=== PATIENT | female | born 1935 | race Caucasian/White ===

== ENCOUNTER 2018-08-29 14:14 | Inpatient (IN) | payer MEDICARE, OTHER ==
[~2018-08-29] VITALS: Ht 162.6 cm; Wt 105.6 kg
[2018-08-29] MEDS ORDERED: SODIUM CHLORIDE 0.9% 1,000 ML IV ONE (14:40)
[2018-08-29 15:14] LABS: Basophils # (auto) 0.1 uL; Eosinophils # (auto) 0.3 uL; Neutrophils # (auto) 6.8 uL
[2018-08-29 15:16] LABS: Basophils % (auto) 0.7 % (0.0-2.0); Eosinophils % (auto) 2.7 % (0.0-7.0); Hematocrit 37.1 % (36.0-46.0); Hemoglobin 12.1 g/dL (12.2-16.2); Lymphocytes % (auto) 20.4 % (10.0-50.0); Mean Corpuscular Hemoglobin 18.7 pg (28.0-32.0); Mean Corpuscular Hgb Conc. 32.5 g/dL (32.0-36.0); Mean Corpuscular Volume 57.5 fL (80.0-100.0); Monocytes # (auto) 0.8 uL; Monocytes % (auto) 8.4 % (0.0-12.0); Neutrophils % (auto) 67.8 % (37.0-80.0); Nucleated Red Blood Cells % 0.1 %; Platelet Count (auto) 368 10^3/uL (140-450); Red Blood Cells 6.45 10^6/uL (4.0-5.20); Red Cell Distribution Width 16.9 % (11.8-14.3)
[2018-08-29 15:27] LABS: INR 0.98 (0.9-1.15); Partial Thromboplastin Time 32.6 sec (23.78-33.04); Prothrombin Time 10.5 sec (9.27-12.13)
[2018-08-29 15:33] LABS: Alanine Aminotransferase 16 U/L (13-56); Albumin 3.4 g/dL (3.4-5.0); Anion Gap 9 (5-15); Blood Urea Nitrogen 25 mg/dL (7-18); Calcium 8.8 mg/dL (8.5-10.1); Carbon Dioxide 27 mmol/L (21-32); Chloride 103 mmol/L (98-107); Glucose 159 mg/dL (74-106); Potassium 3.5 mmol/L (3.5-5.1); Sodium 139 mmol/L (136-145)
[2018-08-29 15:38] LABS: Alkaline Phosphatase 67 U/L (45-117); Aspartate Aminotransferase 15 U/L (15-37); BUN/Creatinine Ratio 32.9; Bilirubin, Total 0.7 mg/dL (0.2-1.0); GFR African American 94 mL/min; GFR Non-African American 77 mL/min; Total Protein 7.1 g/dL (6.4-8.2)
[2018-08-29 16:21] LABS: Urine Bacteria FEW /hpf (None Seen); Urine Blood Negative /uL (Negative); Urine Mucus FEW (None Seen); Urine Specific Gravity 1.024 (1.001-1.035); Urine WBC 62 /hpf (0 - 5)
[2018-08-29] MEDS ORDERED: DEXTROSE (50%) 50ML SYRG IV PRN (18:30)
[2018-08-29] MEDS ORDERED: clonazePAM 0.5 MG TAB PO PRN (18:45)
[2018-08-29] MEDS ORDERED: DOCUSATE SOD 100 MG CAP PO PRN (18:45)
[2018-08-29] MEDS ORDERED: NITROGLYCERIN 0.4 MG SL TAB SL PRN (18:45)
[2018-08-29] MEDS ORDERED: ONDANSETRON HCL 4 MG/2 ML VIAL IV PRN (18:45)
[2018-08-29] MEDS ORDERED: HYDROmorphone HCL 2 MG/ML VL IV PRN (19:00)
[2018-08-29] MEDS ORDERED: cefTRIAXone 1GM/50ML D5W 50 ML IV ONE (19:00)
[2018-08-29] MEDS: InsuLIN REG 1unit/0.01ml Soln (100units/ml) SC SCH (22:00)
[2018-08-29] MEDS: ACCU-CHEK COMFORT CURVE STRIP VI SCH (22:00)
[2018-08-29] MEDS: DORZOLAMIDE HCL 2% OPTH(EYE) SOL 10ML EACHEYE SCH (22:00)
[2018-08-29] MEDS: LATANOPROST 0.005 % OPTH(EYE) SOL 2.5ML EACHEYE SCH (22:00)
[2018-08-29] MEDS: prednisoLONE ACETATE 1% OPTH SUSP 5ML LEFTEYE SCH (22:00)
[2018-08-29] MEDS ORDERED: IPRATROPIUM BROM 0.5 MG/2.5ML INH SOL NEB SCH (22:00)
[2018-08-29 23:07] VITALS: BP 123/59
[2018-08-30] VITALS (7 sets, daily range): BP systolic 115–138; BP diastolic 58–77
[2018-08-30] MEDS: SODIUM CHLOR 0.9% PF (SALINE LOCK) 10ML VIAL/SYR IV SCH ×4 (00:45→21:18)
[2018-08-30] MEDS: GABAPENTIN 100 MG CAP PO SCH ×3 (00:46→21:23)
[2018-08-30] MEDS: POTASSIUM CHL 20 Meq TABLET PO SCH ×3 (00:46→21:23)
[2018-08-30] MEDS: VENLAFAXINE HCL 37.5mg XR cap PO SCH ×4 (00:46→21:23)
[2018-08-30] MEDS: amLODIPine BESYLATE 5 MG TAB PO SCH ×3 (00:47→21:24)
[2018-08-30] MEDS: PANTOPRAZOLE 40 MG TAB PO SCH ×3 (00:47→21:24)
[2018-08-30] MEDS: ASCORBIC ACID 500 MG TAB PO SCH ×3 (00:48→21:25)
[2018-08-30] MEDS: MONTELUKAST SODIUM 10 MG TAB PO SCH ×2 (00:48→21:24)
[2018-08-30] MEDS: LISINOPRIL 10 MG TAB PO SCH ×3 (00:48→21:26)
[2018-08-30] MEDS: INSULIN LANTUS (GLARGINE) 1 /0.01ml (100units/ml) SC SCH ×3 (00:49→21:26)
[2018-08-30] MEDS ORDERED: INSLANTI SC ×2 (02:11→02:12)
[2018-08-30] MEDS ORDERED: LATA0.0020 EACHEYE (02:12)
[2018-08-30] MEDS ORDERED: FOLI1TAB6 PO (02:12)
[2018-08-30] MEDS ORDERED: LISI10TA6 PO (02:12)
[2018-08-30] MEDS ORDERED: VENL150C2 PO (02:12)
[2018-08-30] MEDS ORDERED: ASPI81TA27 PO (02:12)
[2018-08-30] MEDS ORDERED: OMEP10CA58 PO (02:12)
[2018-08-30] MEDS ORDERED: LEVA1NEB5 IN (02:12)
[2018-08-30] MEDS ORDERED: DOCU-80 PO (02:12)
[2018-08-30] MEDS ORDERED: LEVO137T3 PO (02:12)
[2018-08-30] MEDS ORDERED: GABA100C9 PO (02:12)
[2018-08-30] MEDS ORDERED: AMLO5TAB13 PO (02:12)
[2018-08-30] MEDS ORDERED: MONT10TA34 PO (02:12)
[2018-08-30] MEDS ORDERED: CLON1TAB4 PO (02:12)
[2018-08-30] MEDS ORDERED: POTA20TA53 PO (02:12)
[2018-08-30] MEDS ORDERED: INSU100I4 SC (02:12)
[2018-08-30] MEDS ORDERED: DORZ2SOL18 EACHEYE (02:12)
[2018-08-30] MEDS ORDERED: FLUT100I IN (02:12)
[2018-08-30 06:04] LABS: Basophils # (auto) 0.1 uL; Eosinophils # (auto) 0.3 uL; Monocytes # (auto) 0.9 uL
[2018-08-30 06:06] LABS: Basophils % (auto) 0.6 % (0.0-2.0); Eosinophils % (auto) 3.5 % (0.0-7.0); Hematocrit 35.9 % (36.0-46.0); Hemoglobin 11.7 g/dL (12.2-16.2); Lymphocytes # (auto) 1.9 uL; Lymphocytes % (auto) 19.8 % (10.0-50.0); Mean Corpuscular Hemoglobin 18.5 pg (28.0-32.0); Mean Corpuscular Hgb Conc. 32.6 g/dL (32.0-36.0); Mean Corpuscular Volume 56.8 fL (80.0-100.0); Monocytes % (auto) 9.7 % (0.0-12.0); Neutrophils # (auto) 6.3 uL; Neutrophils % (auto) 66.4 % (37.0-80.0); Nucleated Red Blood Cells % 0.2 %; Platelet Count (auto) 339 10^3/uL (140-450); Red Blood Cells 6.32 10^6/uL (4.0-5.20); Red Cell Distribution Width 16.5 % (11.8-14.3); White Blood Cell 9.4 10^3/uL (4.4-10.8)
[2018-08-30 06:25] LABS: Calcium 8.1 mg/dL (8.5-10.1); Potassium 3.3 mmol/L (3.5-5.1)
[2018-08-30 06:27] LABS: BUN/Creatinine Ratio 37.5
[2018-08-30 06:30] LABS: Bilirubin, Total 0.6 mg/dL (0.2-1.0); Total Protein 6.2 g/dL (6.4-8.2)
[2018-08-30] MEDS: InsuLIN REG 1unit/0.01ml Soln (100units/ml) SC SCH ×4 (07:00→21:26)
[2018-08-30] MEDS: LEVOTHYROXINE SODIUM 25 MCG TAB PO SCH (07:02)
[2018-08-30] MEDS: LEVOTHYROXINE SODIUM 112 MCG TAB PO SCH (07:02)
[2018-08-30] MEDS: ACCU-CHEK COMFORT CURVE STRIP VI SCH ×4 (07:03→21:26)
[2018-08-30] MEDS: cefTRIAXone 1GM/50ML D5W 50 ML IV SCH (09:32)
[2018-08-30] MEDS: DORZOLAMIDE HCL 2% OPTH(EYE) SOL 10ML EACHEYE SCH ×2 (09:33→21:53)
[2018-08-30] MEDS: MULTIPLE VITAMIN TAB PO SCH (09:35)
[2018-08-30] MEDS: ZINC SULFATE 220mg CAP or TAB PO SCH (09:35)
[2018-08-30] MEDS: FOLIC ACID 1 MG TAB PO SCH (09:37)
[2018-08-30] MEDS: FLUTICASONE FUROATE IN SCH (09:43)
[2018-08-30] MEDS: VILANTEROL IN SCH (09:43)
[2018-08-30] MEDS: IPRATROPIUM BROM 0.5 MG/2.5ML INH SOL NEB SCH ×2 (12:32→18:39)
[2018-08-30] MEDS: LATANOPROST 0.005 % OPTH(EYE) SOL 2.5ML EACHEYE SCH (21:18)
[2018-08-30] MEDS: prednisoLONE ACETATE 1% OPTH SUSP 5ML LEFTEYE SCH (21:18)
[2018-08-31 05:06] VITALS: BP 110/70
[2018-08-31] MEDS: SODIUM CHLOR 0.9% PF (SALINE LOCK) 10ML VIAL/SYR IV SCH ×3 (05:58→21:29)
[2018-08-31] MEDS: VENLAFAXINE HCL 37.5mg XR cap PO SCH ×3 (05:58→21:26)
[2018-08-31] MEDS: LEVOTHYROXINE SODIUM 25 MCG TAB PO SCH (05:59)
[2018-08-31] MEDS: ACCU-CHEK COMFORT CURVE STRIP VI SCH ×4 (05:59→22:00)
[2018-08-31] MEDS: InsuLIN REG 1unit/0.01ml Soln (100units/ml) SC SCH ×4 (05:59→22:00)
[2018-08-31] MEDS: INSULIN LANTUS (GLARGINE) 1 /0.01ml (100units/ml) SC SCH ×2 (05:59→22:00)
[2018-08-31] MEDS: LEVOTHYROXINE SODIUM 112 MCG TAB PO SCH (05:59)
[2018-08-31] MEDS: IPRATROPIUM BROM 0.5 MG/2.5ML INH SOL NEB SCH ×4 (06:33→19:45)
[2018-08-31 08:28] VITALS: BP 134/69
[2018-08-31] MEDS: cefTRIAXone 1GM/50ML D5W 50 ML IV SCH (09:49)
[2018-08-31] MEDS: DORZOLAMIDE HCL 2% OPTH(EYE) SOL 10ML EACHEYE SCH ×2 (09:50→21:25)
[2018-08-31] MEDS: ASCORBIC ACID 500 MG TAB PO SCH ×2 (09:50→21:26)
[2018-08-31] MEDS: ZINC SULFATE 220mg CAP or TAB PO SCH (09:50)
[2018-08-31] MEDS: MULTIPLE VITAMIN TAB PO SCH (09:50)
[2018-08-31] MEDS: GABAPENTIN 100 MG CAP PO SCH ×2 (09:50→21:26)
[2018-08-31] MEDS: amLODIPine BESYLATE 5 MG TAB PO SCH ×2 (09:51→21:27)
[2018-08-31] MEDS: FOLIC ACID 1 MG TAB PO SCH (09:53)
[2018-08-31] MEDS: POTASSIUM CHL 20 Meq TABLET PO SCH ×2 (09:53→21:28)
[2018-08-31] MEDS: VILANTEROL IN SCH (09:54)
[2018-08-31] MEDS: LISINOPRIL 10 MG TAB PO SCH ×2 (09:54→21:27)
[2018-08-31] MEDS: PANTOPRAZOLE 40 MG TAB PO SCH ×2 (09:54→21:26)
[2018-08-31] MEDS: FLUTICASONE FUROATE IN SCH (09:54)
[2018-08-31 12:00] VITALS: BP 128/61
[2018-08-31 16:45] VITALS: BP 127/60
[2018-08-31 20:00] VITALS: BP 144/71
[2018-08-31] MEDS: LATANOPROST 0.005 % OPTH(EYE) SOL 2.5ML EACHEYE SCH (21:26)
[2018-08-31] MEDS: MONTELUKAST SODIUM 10 MG TAB PO SCH (21:27)
[2018-08-31 22:00] VITALS: BP 144/71
[2018-08-31] MEDS: prednisoLONE ACETATE 1% OPTH SUSP 5ML LEFTEYE SCH (22:00)
[2018-09-01] MEDS: IPRATROPIUM BROM 0.5 MG/2.5ML INH SOL NEB SCH ×4 (00:16→18:00)
[2018-09-01 05:00] VITALS: BP 134/68
[2018-09-01] MEDS: SODIUM CHLOR 0.9% PF (SALINE LOCK) 10ML VIAL/SYR IV SCH ×3 (05:04→22:17)
[2018-09-01] MEDS: VENLAFAXINE HCL 37.5mg XR cap PO SCH ×3 (05:44→22:19)
[2018-09-01] MEDS: LEVOTHYROXINE SODIUM 112 MCG TAB PO SCH (05:44)
[2018-09-01] MEDS: LEVOTHYROXINE SODIUM 25 MCG TAB PO SCH (05:44)
[2018-09-01] MEDS: ACCU-CHEK COMFORT CURVE STRIP VI SCH ×4 (05:45→22:22)
[2018-09-01] MEDS: InsuLIN REG 1unit/0.01ml Soln (100units/ml) SC SCH ×4 (06:24→22:00)
[2018-09-01] MEDS: INSULIN LANTUS (GLARGINE) 1 /0.01ml (100units/ml) SC SCH ×2 (06:24→22:00)
[2018-09-01 08:00] VITALS: BP 131/68
[2018-09-01 09:00] VITALS: BP 131/68
[2018-09-01] MEDS: cefTRIAXone 1GM/50ML D5W 50 ML IV SCH (09:40)
[2018-09-01] MEDS: POTASSIUM CHL 20 Meq TABLET PO SCH ×2 (10:00→22:20)
[2018-09-01] MEDS: FOLIC ACID 1 MG TAB PO SCH (10:00)
[2018-09-01] MEDS: ZINC SULFATE 220mg CAP or TAB PO SCH (10:00)
[2018-09-01] MEDS: MULTIPLE VITAMIN TAB PO SCH (10:00)
[2018-09-01] MEDS: PANTOPRAZOLE 40 MG TAB PO SCH ×2 (10:00→22:21)
[2018-09-01] MEDS: GABAPENTIN 100 MG CAP PO SCH ×2 (10:00→22:20)
[2018-09-01] MEDS: amLODIPine BESYLATE 5 MG TAB PO SCH ×2 (10:00→22:21)
[2018-09-01] MEDS: ASCORBIC ACID 500 MG TAB PO SCH ×2 (10:00→22:21)
[2018-09-01] MEDS: VILANTEROL IN SCH (10:00)
[2018-09-01] MEDS: LISINOPRIL 10 MG TAB PO SCH ×2 (10:00→22:22)
[2018-09-01] MEDS: FLUTICASONE FUROATE IN SCH (10:00)
[2018-09-01] MEDS: DORZOLAMIDE HCL 2% OPTH(EYE) SOL 10ML EACHEYE SCH ×2 (10:00→22:16)
[2018-09-01 13:00] VITALS: BP 125/65
[2018-09-01 14:39] LABS: Albumin 3.4 g/dL (3.4-5.0); BUN/Creatinine Ratio 22.4; Calcium 8.4 mg/dL (8.5-10.1); Potassium 3.8 mmol/L (3.5-5.1)
[2018-09-01 14:42] LABS: Bilirubin, Total 0.5 mg/dL (0.2-1.0)
[2018-09-01] MEDS ORDERED: SUCCINYLCHOLINE CHLORIDE 20 MG/ML 10ML VIAL IV ONE (16:14)
[2018-09-01] MEDS ORDERED: ROCURONIUM 10MG/ML 10ML VIAL IV ONE (17:23)
[2018-09-01] MEDS ORDERED: fentaNYL CITRATE 5 ML ONE (17:23)
[2018-09-01] MEDS ORDERED: MIDAZOLAM HCL 1MG/1ML-2 ML VIAL ONE ×2 (17:23→17:42)
[2018-09-01] MEDS ORDERED: PROPOFOL 10 MG/ML 20 ML IV ONE (17:26)
[2018-09-01] MEDS ORDERED: ceFAZolin 1GM/50ML 50 ML IV ONE (17:52)
[2018-09-01] MEDS ORDERED: ePHEDrine SULFATE 50 MG/ML AMP IV PRN (19:00)
[2018-09-01] MEDS ORDERED: hydrALAZINE HCL 20 MG/ML VL IV PRN (19:00)
[2018-09-01] MEDS ORDERED: ONDANSETRON HCL 4 MG/2 ML VIAL IV ONE (19:00)
[2018-09-01] MEDS: fentaNYL CITRATE 100 MCG/2 ML VL IV PRN ×4 (19:08→19:45)
[2018-09-01 21:26] VITALS: BP 132/60
[2018-09-01 21:48] VITALS: BP 134/76
[2018-09-01] MEDS: prednisoLONE ACETATE 1% OPTH SUSP 5ML LEFTEYE SCH (22:00)
[2018-09-01] MEDS: LATANOPROST 0.005 % OPTH(EYE) SOL 2.5ML EACHEYE SCH (22:16)
[2018-09-01] MEDS: ceFAZolin 1GM/50ML 50 ML IV SCH (22:16)
[2018-09-01] MEDS: MONTELUKAST SODIUM 10 MG TAB PO SCH (22:21)
[2018-09-01] MEDS ORDERED: IBUPROFEN 800 MG TAB PO ONE (23:30)
[2018-09-02 05:00] VITALS: BP 146/65
[2018-09-02] MEDS: IPRATROPIUM BROM 0.5 MG/2.5ML INH SOL NEB SCH ×4 (06:05→18:29)
[2018-09-02] MEDS: ceFAZolin 1GM/50ML 50 ML IV SCH ×3 (06:28→22:06)
[2018-09-02] MEDS: VENLAFAXINE HCL 37.5mg XR cap PO SCH ×3 (06:29→22:10)
[2018-09-02] MEDS: LEVOTHYROXINE SODIUM 25 MCG TAB PO SCH (06:29)
[2018-09-02] MEDS: InsuLIN REG 1unit/0.01ml Soln (100units/ml) SC SCH ×4 (06:29→22:08)
[2018-09-02] MEDS: LEVOTHYROXINE SODIUM 112 MCG TAB PO SCH (06:29)
[2018-09-02] MEDS: SODIUM CHLOR 0.9% PF (SALINE LOCK) 10ML VIAL/SYR IV SCH ×3 (06:29→22:06)
[2018-09-02] MEDS: INSULIN LANTUS (GLARGINE) 1 /0.01ml (100units/ml) SC SCH ×2 (06:30→22:08)
[2018-09-02] MEDS: ACCU-CHEK COMFORT CURVE STRIP VI SCH ×4 (06:30→22:08)
[2018-09-02 07:17] LABS: Hematocrit 36.3 % (36.0-46.0); Hemoglobin 11.3 g/dL (12.2-16.2)
[2018-09-02 09:00] VITALS: BP 111/75
[2018-09-02] MEDS: FLUTICASONE FUROATE IN SCH (09:23)
[2018-09-02] MEDS: VILANTEROL IN SCH (09:23)
[2018-09-02] MEDS: DORZOLAMIDE HCL 2% OPTH(EYE) SOL 10ML EACHEYE SCH ×2 (09:23→22:06)
[2018-09-02] MEDS: MULTIPLE VITAMIN TAB PO SCH (09:24)
[2018-09-02] MEDS: POTASSIUM CHL 20 Meq TABLET PO SCH ×2 (09:24→22:11)
[2018-09-02] MEDS: FOLIC ACID 1 MG TAB PO SCH (09:24)
[2018-09-02] MEDS: ASCORBIC ACID 500 MG TAB PO SCH ×2 (09:24→22:08)
[2018-09-02] MEDS: PANTOPRAZOLE 40 MG TAB PO SCH ×2 (09:24→22:11)
[2018-09-02] MEDS: GABAPENTIN 100 MG CAP PO SCH ×2 (09:24→22:07)
[2018-09-02] MEDS: ZINC SULFATE 220mg CAP or TAB PO SCH (09:24)
[2018-09-02] MEDS: LISINOPRIL 10 MG TAB PO SCH ×2 (09:25→22:11)
[2018-09-02] MEDS: amLODIPine BESYLATE 5 MG TAB PO SCH ×2 (09:26→22:08)
[2018-09-02 12:00] VITALS: BP 119/63
[2018-09-02 17:00] VITALS: BP 134/68
[2018-09-02] MEDS: prednisoLONE ACETATE 1% OPTH SUSP 5ML LEFTEYE SCH (22:00)
[2018-09-02] MEDS: LATANOPROST 0.005 % OPTH(EYE) SOL 2.5ML EACHEYE SCH (22:06)
[2018-09-02] MEDS: MONTELUKAST SODIUM 10 MG TAB PO SCH (22:11)
[2018-09-02 22:18] VITALS: BP 131/96
[2018-09-02] MEDS: IBUPROFEN 600 MG TAB PO PRN (23:28)
[2018-09-03 05:00] VITALS: BP 134/74
[2018-09-03 05:06] LABS: Hemoglobin 11.6 g/dL (12.2-16.2)
[2018-09-03] MEDS: IPRATROPIUM BROM 0.5 MG/2.5ML INH SOL NEB SCH ×5 (06:16→23:28)
[2018-09-03] MEDS: SODIUM CHLOR 0.9% PF (SALINE LOCK) 10ML VIAL/SYR IV SCH ×3 (06:35→22:15)
[2018-09-03] MEDS: VENLAFAXINE HCL 37.5mg XR cap PO SCH ×3 (06:35→21:58)
[2018-09-03] MEDS: LEVOTHYROXINE SODIUM 112 MCG TAB PO SCH (06:35)
[2018-09-03] MEDS: ceFAZolin 1GM/50ML 50 ML IV SCH ×3 (06:35→21:59)
[2018-09-03] MEDS: LEVOTHYROXINE SODIUM 25 MCG TAB PO SCH (06:36)
[2018-09-03] MEDS: ACCU-CHEK COMFORT CURVE STRIP VI SCH ×4 (06:36→22:00)
[2018-09-03] MEDS: InsuLIN REG 1unit/0.01ml Soln (100units/ml) SC SCH ×4 (06:36→22:00)
[2018-09-03] MEDS: INSULIN LANTUS (GLARGINE) 1 /0.01ml (100units/ml) SC SCH ×2 (06:36→22:00)
[2018-09-03 09:00] VITALS: BP 128/72
[2018-09-03] MEDS: FLUTICASONE FUROATE IN SCH (10:00)
[2018-09-03] MEDS: VILANTEROL IN SCH (10:00)
[2018-09-03] MEDS: POTASSIUM CHL 20 Meq TABLET PO SCH ×2 (10:34→21:58)
[2018-09-03] MEDS: ASCORBIC ACID 500 MG TAB PO SCH ×2 (10:35→21:58)
[2018-09-03] MEDS: PANTOPRAZOLE 40 MG TAB PO SCH ×2 (10:35→21:58)
[2018-09-03] MEDS: FOLIC ACID 1 MG TAB PO SCH (10:35)
[2018-09-03] MEDS: ZINC SULFATE 220mg CAP or TAB PO SCH (10:35)
[2018-09-03] MEDS: MULTIPLE VITAMIN TAB PO SCH (10:35)
[2018-09-03] MEDS: GABAPENTIN 100 MG CAP PO SCH ×2 (10:36→21:58)
[2018-09-03] MEDS: amLODIPine BESYLATE 5 MG TAB PO SCH ×2 (10:36→22:14)
[2018-09-03] MEDS: LISINOPRIL 10 MG TAB PO SCH ×2 (10:37→22:14)
[2018-09-03] MEDS: DORZOLAMIDE HCL 2% OPTH(EYE) SOL 10ML EACHEYE SCH ×2 (10:37→21:58)
[2018-09-03] MEDS: IBUPROFEN 600 MG TAB PO PRN ×2 (11:03→21:09)
[2018-09-03 13:00] VITALS: BP 95/40
[2018-09-03 16:51] VITALS: BP 110/68
[2018-09-03] MEDS: MONTELUKAST SODIUM 10 MG TAB PO SCH (21:58)
[2018-09-03] MEDS: LATANOPROST 0.005 % OPTH(EYE) SOL 2.5ML EACHEYE SCH (21:58)
[2018-09-03 22:00] VITALS: BP 123/70
[2018-09-03] MEDS: prednisoLONE ACETATE 1% OPTH SUSP 5ML LEFTEYE SCH (22:00)
[2018-09-04] MEDS: TEMAZEPAM 15 MG CAP PO PRN ×2 (02:27→23:41)
[2018-09-04 04:48] LABS: Hematocrit 36.5 % (36.0-46.0); Hemoglobin 11.7 g/dL (12.2-16.2)
[2018-09-04 05:00] VITALS: BP 161/79
[2018-09-04] MEDS: ceFAZolin 1GM/50ML 50 ML IV SCH ×3 (06:31→22:19)
[2018-09-04] MEDS: LEVOTHYROXINE SODIUM 25 MCG TAB PO SCH (06:32)
[2018-09-04] MEDS: VENLAFAXINE HCL 37.5mg XR cap PO SCH ×3 (06:32→22:17)
[2018-09-04] MEDS: LEVOTHYROXINE SODIUM 112 MCG TAB PO SCH (06:32)
[2018-09-04] MEDS: IPRATROPIUM BROM 0.5 MG/2.5ML INH SOL NEB SCH ×3 (06:44→19:31)
[2018-09-04] MEDS: INSULIN LANTUS (GLARGINE) 1 /0.01ml (100units/ml) SC SCH ×2 (06:46→22:00)
[2018-09-04] MEDS: ACCU-CHEK COMFORT CURVE STRIP VI SCH ×4 (06:46→22:00)
[2018-09-04] MEDS: InsuLIN REG 1unit/0.01ml Soln (100units/ml) SC SCH ×4 (06:47→22:00)
[2018-09-04] MEDS: SODIUM CHLOR 0.9% PF (SALINE LOCK) 10ML VIAL/SYR IV SCH ×3 (06:59→23:42)
[2018-09-04 09:00] VITALS: BP 127/64
[2018-09-04] MEDS: FLUTICASONE FUROATE IN SCH (10:00)
[2018-09-04] MEDS: VILANTEROL IN SCH (10:00)
[2018-09-04] MEDS: DORZOLAMIDE HCL 2% OPTH(EYE) SOL 10ML EACHEYE SCH ×2 (10:22→22:20)
[2018-09-04] MEDS: ZINC SULFATE 220mg CAP or TAB PO SCH (10:23)
[2018-09-04] MEDS: PANTOPRAZOLE 40 MG TAB PO SCH ×2 (10:23→22:18)
[2018-09-04] MEDS: GABAPENTIN 100 MG CAP PO SCH ×2 (10:23→22:19)
[2018-09-04] MEDS: amLODIPine BESYLATE 5 MG TAB PO SCH ×2 (10:23→22:18)
[2018-09-04] MEDS: MULTIPLE VITAMIN TAB PO SCH (10:23)
[2018-09-04] MEDS: ASCORBIC ACID 500 MG TAB PO SCH ×2 (10:23→22:18)
[2018-09-04] MEDS: POTASSIUM CHL 20 Meq TABLET PO SCH ×2 (10:23→22:17)
[2018-09-04] MEDS: LISINOPRIL 10 MG TAB PO SCH ×2 (10:24→22:18)
[2018-09-04] MEDS: FOLIC ACID 1 MG TAB PO SCH (10:24)
[2018-09-04 13:00] VITALS: BP 117/71
[2018-09-04 16:40] VITALS: BP 121/88
[2018-09-04 20:41] VITALS: BP 121/88
[2018-09-04] MEDS: IBUPROFEN 600 MG TAB PO PRN (20:59)
[2018-09-04 22:00] VITALS: BP 107/58
[2018-09-04] MEDS: prednisoLONE ACETATE 1% OPTH SUSP 5ML LEFTEYE SCH (22:00)
[2018-09-04] MEDS: MONTELUKAST SODIUM 10 MG TAB PO SCH (22:18)
[2018-09-04] MEDS: LATANOPROST 0.005 % OPTH(EYE) SOL 2.5ML EACHEYE SCH (22:20)
[2018-09-05] MEDS: IPRATROPIUM BROM 0.5 MG/2.5ML INH SOL NEB SCH ×4 (00:10→18:29)
[2018-09-05 05:00] VITALS: BP 109/60
[2018-09-05] MEDS: VENLAFAXINE HCL 37.5mg XR cap PO SCH ×3 (06:05→22:29)
[2018-09-05] MEDS: ceFAZolin 1GM/50ML 50 ML IV SCH ×3 (06:05→22:27)
[2018-09-05] MEDS: SODIUM CHLOR 0.9% PF (SALINE LOCK) 10ML VIAL/SYR IV SCH ×3 (06:05→22:27)
[2018-09-05] MEDS: ACCU-CHEK COMFORT CURVE STRIP VI SCH ×4 (06:32→22:00)
[2018-09-05] MEDS: InsuLIN REG 1unit/0.01ml Soln (100units/ml) SC SCH ×4 (06:32→22:00)
[2018-09-05] MEDS: LEVOTHYROXINE SODIUM 25 MCG TAB PO SCH (06:35)
[2018-09-05] MEDS: LEVOTHYROXINE SODIUM 112 MCG TAB PO SCH (06:35)
[2018-09-05] MEDS: INSULIN LANTUS (GLARGINE) 1 /0.01ml (100units/ml) SC SCH ×2 (07:05→22:00)
[2018-09-05 09:00] VITALS: BP 126/50
[2018-09-05] MEDS: LISINOPRIL 10 MG TAB PO SCH ×2 (10:00→22:29)
[2018-09-05] MEDS: amLODIPine BESYLATE 5 MG TAB PO SCH ×2 (10:00→22:29)
[2018-09-05] MEDS: VILANTEROL IN SCH (10:00)
[2018-09-05] MEDS: FLUTICASONE FUROATE IN SCH (10:00)
[2018-09-05] MEDS: ZINC SULFATE 220mg CAP or TAB PO SCH (10:06)
[2018-09-05] MEDS: GABAPENTIN 100 MG CAP PO SCH ×2 (10:06→22:29)
[2018-09-05] MEDS: MULTIPLE VITAMIN TAB PO SCH (10:07)
[2018-09-05] MEDS: PANTOPRAZOLE 40 MG TAB PO SCH ×2 (10:08→22:28)
[2018-09-05] MEDS: POTASSIUM CHL 20 Meq TABLET PO SCH ×2 (10:08→22:31)
[2018-09-05] MEDS: ASCORBIC ACID 500 MG TAB PO SCH ×2 (10:08→22:27)
[2018-09-05] MEDS: FOLIC ACID 1 MG TAB PO SCH (10:08)
[2018-09-05] MEDS: DORZOLAMIDE HCL 2% OPTH(EYE) SOL 10ML EACHEYE SCH ×2 (10:09→22:26)
[2018-09-05 11:10] LABS: Hematocrit 36.5 % (36.0-46.0); Hemoglobin 11.4 g/dL (12.2-16.2)
[2018-09-05 12:57] VITALS: BP 116/63
[2018-09-05 17:02] VITALS: BP 127/62
[2018-09-05 22:00] VITALS: BP 135/58
[2018-09-05] MEDS: prednisoLONE ACETATE 1% OPTH SUSP 5ML LEFTEYE SCH (22:00)
[2018-09-05] MEDS: LATANOPROST 0.005 % OPTH(EYE) SOL 2.5ML EACHEYE SCH (22:26)
[2018-09-05] MEDS: MONTELUKAST SODIUM 10 MG TAB PO SCH (22:30)
[2018-09-06] MEDS: TEMAZEPAM 15 MG CAP PO PRN (00:22)
[2018-09-06] MEDS: IBUPROFEN 600 MG TAB PO PRN (00:22)
[2018-09-06 05:00] VITALS: BP 142/66
[2018-09-06] MEDS: IPRATROPIUM BROM 0.5 MG/2.5ML INH SOL NEB SCH ×3 (05:47→12:11)
[2018-09-06] MEDS: VENLAFAXINE HCL 37.5mg XR cap PO SCH ×2 (06:13→13:59)
[2018-09-06] MEDS: ceFAZolin 1GM/50ML 50 ML IV SCH ×2 (06:13→13:58)
[2018-09-06] MEDS: SODIUM CHLOR 0.9% PF (SALINE LOCK) 10ML VIAL/SYR IV SCH ×2 (06:14→13:59)
[2018-09-06] MEDS: LEVOTHYROXINE SODIUM 25 MCG TAB PO SCH (06:30)
[2018-09-06] MEDS: LEVOTHYROXINE SODIUM 112 MCG TAB PO SCH (06:30)
[2018-09-06] MEDS: ACCU-CHEK COMFORT CURVE STRIP VI SCH ×2 (06:41→14:32)
[2018-09-06] MEDS: InsuLIN REG 1unit/0.01ml Soln (100units/ml) SC SCH ×2 (06:42→11:30)
[2018-09-06] MEDS: INSULIN LANTUS (GLARGINE) 1 /0.01ml (100units/ml) SC SCH (06:56)
[2018-09-06 08:00] VITALS: BP 118/66
[2018-09-06 09:00] VITALS: BP 118/66
[2018-09-06] MEDS: GABAPENTIN 100 MG CAP PO SCH (09:40)
[2018-09-06] MEDS: LISINOPRIL 10 MG TAB PO SCH (09:40)
[2018-09-06] MEDS: ASCORBIC ACID 500 MG TAB PO SCH (09:40)
[2018-09-06] MEDS: POTASSIUM CHL 20 Meq TABLET PO SCH (09:40)
[2018-09-06] MEDS: FOLIC ACID 1 MG TAB PO SCH (09:40)
[2018-09-06] MEDS: MULTIPLE VITAMIN TAB PO SCH (09:40)
[2018-09-06] MEDS: FLUTICASONE FUROATE IN SCH (09:41)
[2018-09-06] MEDS: VILANTEROL IN SCH (09:41)
[2018-09-06] MEDS: PANTOPRAZOLE 40 MG TAB PO SCH (09:41)
[2018-09-06] MEDS: ZINC SULFATE 220mg CAP or TAB PO SCH (09:41)
[2018-09-06] MEDS: amLODIPine BESYLATE 5 MG TAB PO SCH (09:41)
[2018-09-06] MEDS: DORZOLAMIDE HCL 2% OPTH(EYE) SOL 10ML EACHEYE SCH (09:41)
[2018-09-06 13:00] VITALS: BP 126/63
[2018-09-06 14:22] VITALS: BP 126/63
== END 2018-09-06 15:40 | disposition home health service (06) | DRG 475 ==
LOC: ER 14:14 → TELE 14:15 → TELE-CENTR 22:00
PROVIDERS: ADMIT Internal Medicine; ATTEND Family Medicine
PROC: 0Y6D0Z3 Detachment at Left Upper Leg, Low, Open Approach (ICD-10-PCS; 2018-09-01)
PROC: 0JCM3ZZ Extirpation of Matter from Left Upper Leg Subcutaneous Tissue and Fascia, Percutaneous Approach (ICD-10-PCS; 2018-09-01)
PROC: 0QB Lower Bones, Excision (ICD-10-PCS; principal; 2018-09-01 17:19)
DX: T87.44 Infection of amputation stump, left lower extremity (principal); N39.0 Urinary tract infection, site not specified; M86.8X5 Other osteomyelitis, thigh; Z68.41 Body mass index [BMI] 40.0-44.9, adult; D63.8 Anemia in other chronic diseases classified elsewhere; E11.21 Type 2 diabetes mellitus with diabetic nephropathy; E11.22 Type 2 diabetes mellitus with diabetic chronic kidney disease; E66.01 Morbid (severe) obesity due to excess calories; E87.6 Hypokalemia; N18.9 Chronic kidney disease, unspecified; I12.9 Hypertensive chronic kidney disease with stage 1 through stage 4 chronic kidney disease, or unspecified chronic kidney disease; D56.1 Beta thalassemia; E03.9 Hypothyroidism, unspecified; E11.42 Type 2 diabetes mellitus with diabetic polyneuropathy; E11.69 Type 2 diabetes mellitus with other specified complication; Y83.8 Other surgical procedures as the cause of abnormal reaction of the patient, or of later complication, without mention of misadventure at the time of the procedure; E88.81 Metabolic syndrome and other insulin resistance; F32.9 Major depressive disorder, single episode, unspecified; G47.30 Sleep apnea, unspecified; F41.9 Anxiety disorder, unspecified; H40.9 Unspecified glaucoma; J45.909 Unspecified asthma, uncomplicated; Z96.649 Presence of unspecified artificial hip joint; Z96.652 Presence of left artificial knee joint; Z90.49 Acquired absence of other specified parts of digestive tract
CPT/HCPCS: 36415; 71045; 73501; 80053; 81001; 82962; 83036; 83880; 84484; 85014; 85018; 85025; 85610; 85730; 86850; 86870; 86880; 86900; 86901; 86905; 86906; 87040; 87070; 87075; 87081; 87086; 87205; 93005; 93306; 94640; 96361; 96374; 97110; 97163; 97530; A4605; G0378; J0330; J0690; J0696; J1815; J2250; J2704